=== PATIENT | male | born 1990 ===

== ENCOUNTER 2017-01-28 03:38 | Emergency (ER) | payer MEDICAID ==
[2017-01-28 03:38] VITALS: BMI 31.0
--- NOTE | 2017-01-28 04:13 | ED PDOC ---
HPI: General Adult Time Seen by Provider: 01/28/17 04:11 Chief Complaint (Nursing): Medical Clearance Chief Complaint (Provider): medical clearance History Per: Patient (26 y/o male here for medical incarceration. Notes left elbow abrasion today. Has h/o anxiety. Denies any SI/HI.) Past Medical History Reviewed: Historical Data, Nursing Documentation, Vital Signs Vital Signs: Last Vital Signs Temp 99.2 F 01/28/17 03:49 Pulse 120 H 01/28/17 03:49 Resp 16 01/28/17 03:49 BP 116/60 01/28/17 03:49 Pulse Ox 96 01/28/17 03:49 - Medical History PMH: Anxiety, Asthma, Depression, HTN, Hypercholesterolemia Denies: HIV, Seizures, Sexually Transmitted Disease - Family History Family History: States: Unknown Family Hx - Immunization History Hx Tetanus Toxoid Vaccination: No Hx Influenza Vaccination: No Hx Pneumococcal Vaccination: No - Home Medications Home Medications: Ambulatory Orders Medication Instructions Recorded No Known Home Med 12/04/16 - Allergies Allergies/Adverse Reactions: Allergies Allergy/AdvReac Type Severity Reaction Status Date / Time No Known Allergies Allergy Verified 01/15/17 21:40 Review of Systems ROS Statement: Except As Marked, All Systems Reviewed And Found Negative Physical Exam - Reviewed Nursing Documentation Reviewed: Yes Vital Signs Reviewed: Yes - Physical Exam Appears: Positive for: Well, Non-toxic, No Acute Distress Head Exam: Positive for: ATRAUMATIC, NORMAL INSPECTION, NORMOCEPHALIC Skin: Positive for: Normal Color, Warm Eye Exam: Positive for: EOMI, Normal appearance, PERRL ENT: Positive for: Normal ENT Inspection Neck: Positive for: Normal, Painless ROM Cardiovascular/Chest: Positive for: Regular Rate, Rhythm Respiratory: Positive for: CNT, Normal Breath Sounds Gastrointestinal/Abdominal: Positive for: Normal Exam, Bowel Sounds, Soft Back: Positive for: Normal Inspection Extremity: Positive for: Normal ROM, Other (abrasion extensor surface of elbow.) Neurologic/Psych: Positive for: Alert, Oriented - ECG O2 Sat by Pulse Oximetry: 96 - Progress ED Course And Treament: tdap 0.5ml IM x 1 dose Disposition - Clinical Impression Clinical Impression: Elbow abrasion - Patient ED Disposition Is Patient to be Admitted: No - Disposition Disposition: Routine/Home Disposition Time: 04:14 Condition: FAIR Additional Instructions: PATIENT IS MEDICALLY AND PSYCHIATRICALLY CLEARED FOR INCARCERATION. Instructions: Abrasion (ED) Forms: [employer] ([place]jib[place]ian)
[2017-01-28 04:40] VITALS: BP 129/53; PULSE 96; RESP 19; TEMP 98; O2SAT 99
== END 2017-01-28 05:31 ==
LOC: H.ER 03:38
DX: S50.312A Abrasion of left elbow, initial encounter (principal); Y92.89 Other specified places as the place of occurrence of the external cause; E78.00 Pure hypercholesterolemia, unspecified; F32.9 Major depressive disorder, single episode, unspecified; F41.9 Anxiety disorder, unspecified; I10 Essential (primary) hypertension; J45.909 Unspecified asthma, uncomplicated

== ENCOUNTER 2017-10-04 03:51 | Emergency (ER) | payer MEDICAID ==
[2017-10-04 03:51] VITALS: BMI 31.0
--- NOTE | 2017-10-04 04:13 | ED PDOC ---
HPI: Psych/Substance Abuse Time Seen by Provider: 10/04/17 03:54 Chief Complaint (Nursing): Alcohol Ingestion Chief Complaint (Provider): Alcohol intoxication ED Caveat: Intoxicated (alcohol) History/Exam Limitations: clinical condition, intoxication Current Symptoms Are (Timing): Still Present Modifying Factor(s): Alcohol Additional Complaint(s): Gurjit Kimble is a 27 year old male who presents to the emergency department under police custody for alcohol intoxication. Patient is uncooperative and aggressive. Patient is under police arrest. Limited history due to patient's clinical condition. PMD: None provided Past Medical History Reviewed: Historical Data, Nursing Documentation, Vital Signs Vital Signs: Last Vital Signs Temp 98.6 F 10/04/17 03:57 Pulse 100 H 10/04/17 03:57 Resp 20 10/04/17 03:57 BP 130/86 10/04/17 03:57 Pulse Ox 98 10/04/17 03:57 - Medical History PMH: Anxiety, Asthma, Depression, HTN, Hypercholesterolemia Denies: HIV, Seizures, Sexually Transmitted Disease - Surgical History Surgical History: No Surg Hx - Family History Family History: States: Unknown Family Hx - Immunization History Hx Tetanus Toxoid Vaccination: No Hx Influenza Vaccination: No Hx Pneumococcal Vaccination: No - Home Medications Home Medications: Ambulatory Orders Medication Instructions Recorded Bacitracin OINT 1 applic TP BID #1 tube 09/14/17 Cephalexin [cephalexin] 500 mg PO BID #14 cap 09/14/17 - Allergies Allergies/Adverse Reactions: Allergies Allergy/AdvReac Type Severity Reaction Status Date / Time No Known Allergies Allergy Verified 09/14/17 09:00 Review of Systems Review Of Systems: ROS cannot be obtained secondary to pt's inabilty to answer questions. (alcohol intoxication) Physical Exam - Reviewed Nursing Documentation Reviewed: Yes Vital Signs Reviewed: Yes - Physical Exam Appears: Positive for: No Acute Distress Head Exam: Positive for: ATRAUMATIC, NORMAL INSPECTION, NORMOCEPHALIC Skin: Positive for: Normal Color, Warm, Dry Eye Exam: Positive for: EOMI, Normal appearance, PERRL Neck: Positive for: Normal, Painless ROM Cardiovascular/Chest: Positive for: Regular Rate, Rhythm Respiratory: Positive for: Normal Breath Sounds. Negative for: Respiratory Distress Gastrointestinal/Abdominal: Positive for: Normal Exam, Soft. Negative for: Tenderness Extremity: Positive for: Normal ROM (upper and lower extremities). Negative for : Deformity Neurologic/Psych: Positive for: Alert, Oriented, Other (slurred speech) - Laboratory Results Result Diagrams: 10/04/17 05:00 10/04/17 05:00 - ECG O2 Sat by Pulse Oximetry: 98 (RA) Pulse Ox Interpretation: Normal Medical Decision Making Medical Decision Making: Time: 03:54 Initial Impression: 27 year old male with alcohol intoxication Initial Plan: --Alcohol serum --CMP --Drug screen --CBC w/ differential --Ativan 2mg IM --Haldol 5 mg IM --Observation --Accucheck --Restraints Time: 07:00 Patient signed out to Dr. Anthony pending sobriety and crisis evaluation. Scribe Attestation: Documented by Vandana Gabriel, acting as a scribe for Manuel Connolly MD Provider Scribe Attestation: All medical record entries made by the Scribe were at my direction and personally dictated by me. I have reviewed the chart and agree that the record accurately reflects my personal performance of the history, physical exam, medical decision making, and the department course for this patient. I have also personally directed, reviewed, and agree with the discharge instructions and disposition. Disposition - Clinical Impression Clinical Impression: PCP (phencyclidine) abuse - Patient ED Disposition Is Patient to be Admitted: Transfer of Care - Disposition Disposition: Transfer of Care Disposition Time: 07:00 Condition: FAIR Additional Instructions: Medically ands psychiatrically stable for incarceration Instructions: Drug Abuse and Drug Addiction (DC) Forms: [employer] ([place]an) Patient Signed Over To: Lonnie Anthony
[2017-10-04 05:03] LABS: BASO % 0.8 % (0.0-2.0); EOS # 0.1 K/uL (0.0-0.7); EOS % 1.2 % (0.0-4.0); HEMOGLOBIN 14.1 g/dL (12.0-18.0); LYMPH # 2.6 K/uL (1.0-4.3); LYMPH % 40.1 % (20.0-40.0); MEAN CELL VOLUME 90.9 fl (80.0-94.0); MEAN CORPUSCULAR HEMOGLOBIN 30.6 pg (27.0-31.0); MEAN CORPUSCULAR HGB CONC 33.7 g/dL (33.0-37.0); MEAN PLATELET VOLUME 8.9 fl (7.2-11.7); MONO # 0.4 K/uL (0.0-0.8); MONO % 6.6 % (0.0-10.0); NEUT # 3.3 K/uL (1.8-7.0); NEUT % 51.3 % (50.0-75.0); NRBC % 0.1 % (0.0-0.0); RBC 4.62 Mil/uL (4.40-5.90); RED CELL DISTRIBUTION WIDTH 14.9 % (11.5-14.5); WHITE BLOOD COUNT 6.4 K/uL (4.8-10.8)
[2017-10-04 05:12] LABS: ALB/GLOB RATIO 1.3 (1.0-2.1); ALBUMIN 4.4 g/dL (3.5-5.0); ALT/SGPT 45 U/L (21-72); AST/SGOT 29 U/L (17-59); BLOOD UREA NITROGEN 8 mg/dl (9-20); GFR AFRICAN-AMERICAN > 60; GFR NON-AFRICAN AMERICAN > 60
[2017-10-04 08:51] LABS: BARBITURATES, UR NEGATIVE (NEGATIVE); BENZODIAZEPINES, UR NEGATIVE (NEGATIVE); OPIATES, UR NEGATIVE (NEGATIVE); PHENCYCLIDINE, UR POSITIVE (NEGATIVE)
--- NOTE | 2017-10-04 09:08 | ED PDOC ---
- Laboratory Results Result Diagrams: 10/04/17 05:00 10/04/17 05:00 - ECG O2 Sat by Pulse Oximetry: 99 - Progress Re-evaluation Time: 09:06 Condition: Improved (Awake alert oriented x 3 No focal neuro deficits) Disposition - Clinical Impression Clinical Impression: PCP (phencyclidine) abuse - POA Present On Arrival: None - Disposition Disposition: Discharged/Transfer to Law Enforcement Disposition Time: 09:06 Condition: FAIR Additional Instructions: Medically ands psychiatrically stable for incarceration Instructions: Drug Abuse and Drug Addiction (DC) Forms: [employer] ([place]an)
[2017-10-04 10:04] VITALS: BP 120/88; PULSE 85; RESP 16; TEMP 98.1
[2017-10-04 20:20] VITALS: O2SAT 98
== END 2017-10-04 09:35 ==
LOC: H.ER 03:51
DX: F16.10 Hallucinogen abuse, uncomplicated (principal); Y90.4 Blood alcohol level of 80-99 mg/100 ml; F10.129 Alcohol abuse with intoxication, unspecified; E78.00 Pure hypercholesterolemia, unspecified; Z86.59 Personal history of other mental and behavioral disorders; I10 Essential (primary) hypertension; J45.909 Unspecified asthma, uncomplicated
CPT/HCPCS: 80053; 80320; 80324; 80345; 80346; 80349; 80353; 80358; 80361; 82948; 83992; 85025; 96372; 99285; J1630; J2060